=== PATIENT | female | born 1950 | race Hispanic/Latino ===

== ENCOUNTER 2018-05-07 07:59 | Day surgery (SDC) | payer BC, MEDICARE ==
[~2018-05-07] VITALS: Ht 160 cm; Wt 94.3 kg
[~2018-05-07 07:59] MED LIST: MELOXICAM7.5 MG PO; OMEPRAZOLE10 MG PO; SERTRALINE50 MG PO; SIMVASTATIN20 MG PO; TEA TREE PO
[2018-05-07 11:13] VITALS: BP 108/58
== END 2018-05-07 11:05 | disposition home or self-care (01) | DRG 951 ==
LOC: ENDO 07:59
PROVIDERS: ATTEND Surgery
PROC: 0DJD8ZZ Inspection of Lower Intestinal Tract, Via Natural or Artificial Opening Endoscopic (ICD-10-PCS; principal; 2018-05-07)
DX: Z12.11 Encounter for screening for malignant neoplasm of colon (principal); E78.5 Hyperlipidemia, unspecified